=== PATIENT | male | born 1935 | race African-American/Black ===

== ENCOUNTER 2019-04-10 13:44 | Emergency (ER) | payer MEDICARE, OTHER ==
[~2019-04-10] VITALS: Ht 177.8 cm; Wt 68.0 kg
[~2019-04-10 13:44] MED LIST: NAPR-681 PO
[2019-04-10] MEDS ORDERED: CEFAZOLIN 1000MG PREMIX 50 ML IV ONE (15:15)
[2019-04-10 15:45] LABS: EOSINOPHILS % 1.5 % (0.0-5.0); HEMATOCRIT. 38.7 % (42.0-52.0); HEMOGLOBIN. 13.2 g/dL (14.0-18.0); MEAN CORPUSCULAR HEMOGLOBIN 33.4 pg (28.0-32.0); MEAN CORPUSCULAR VOLUME 98.1 fL (80.0-94.0); MEAN PLATELET VOLUME 7.3 fl (7.4-10.4); MONOCYTES % 9.9 % (2.0-8.0); NEUTROPHILS % 59.6 % (40.0-76.0); PLATELET 204 x1000/uL (130-400); RED BLOOD CELL COUNT 3.95 mill/uL (4.7-6.1); RED CELL DISTRIBUTION WIDTH 14.5 % (11.6-14.6)
[2019-04-10 15:46] LABS: CHLORIDE 106 mEq/L (98-107)
[2019-04-10 15:53] LABS: C REACTIVE PROTEIN QUANT 3.1 mg/L (0.0-3.0)
[2019-04-10 16:05] VITALS: BP 152/84
== END 2019-04-10 16:22 | disposition left against medical advice (07) ==
LOC: ER 13:44
DX: L03.114 Cellulitis of left upper limb (principal)
CPT/HCPCS: 36415; 80053; 85025; 85651; 86140; 96365; 99283; J0690

== ENCOUNTER 2021-02-12 21:52 | Inpatient (IN) | payer MEDICARE ==
[~2021-02-12] VITALS: Ht 165.1 cm; Wt 70.3 kg
[2021-02-12] MEDS ORDERED: ACETAMINOPHEN 325MG TABLET PO STA (22:34)
[2021-02-12 23:30] LABS: BASOPHILS % 0.7 % (0.0-2.0); EOSINOPHILS % 0.4 % (0.0-5.0); HEMATOCRIT. 37.3 % (42.0-52.0); HEMOGLOBIN. 12.2 g/dL (14.0-18.0); LYMPHOCYTES % 21.2 % (20.0-50.0); MEAN CORPUSCULAR HEMOGLOBIN 27.1 pg (28.0-32.0); MEAN CORPUSCULAR VOLUME 82.8 fL (80.0-94.0); MEAN PLATELET VOLUME 7.2 fl (7.4-10.4); NEUTROPHILS % 68.7 % (40.0-76.0); PLATELET 252 x1000/uL (130-400); RED CELL DISTRIBUTION WIDTH 19.2 % (11.6-14.6)
[2021-02-12 23:35] LABS: CHLORIDE 106 mEq/L (98-107)
[2021-02-13] MEDS ORDERED: SODIUM CHLORIDE 0.9% 1,000 ML IV ONE
[2021-02-13] MEDS ORDERED: ASPIRIN 325MG EC TABLET PO ONE (01:45)
[2021-02-13] MEDS ORDERED: ACETAMINOPHEN 325MG TABLET PO PRN (02:15)
[2021-02-13] MEDS ORDERED: ONDANSETRON HCL 4MG/2ML INJ IV PRN (02:15)
[2021-02-13 02:23] LABS: CREATINE KINASE 15480 IU/L (39-308)
[2021-02-13 04:05] LABS: CLARITY URINE CLEAR (CLEAR); COLOR URINE DARK YELLOW (YELLOW); KETONES URINE 2+ (NEGATIVE); LEUKOCYTE ESTERASE URINE NEGATIVE (NEGATIVE); NITRITE URINE NEGATIVE (NEGATIVE); OCCULT BLOOD URINE 3+ (NEGATIVE); PH URINE 5.5 (4.5-8.0); PROTEIN URINE 2+ (NEGATIVE); UROBILINOGEN URINE 0.2 E.U./dL (0.2-1.0)
[2021-02-13 08:00] VITALS: BP 128/74
[2021-02-13 09:34] LABS: BASOPHILS % 1.3 % (0.0-2.0); EOSINOPHILS % 2.2 % (0.0-5.0); HEMATOCRIT. 35.1 % (42.0-52.0); HEMOGLOBIN. 11.5 g/dL (14.0-18.0); LYMPHOCYTES % 35.1 % (20.0-50.0); MEAN CORPUSCULAR HEMOGLOBIN 27.2 pg (28.0-32.0); MEAN CORPUSCULAR VOLUME 83.5 fL (80.0-94.0); MEAN PLATELET VOLUME 7.6 fl (7.4-10.4); MONOCYTES % 12.7 % (2.0-8.0); NEUTROPHILS % 48.7 % (40.0-76.0); PLATELET 227 x1000/uL (130-400); RED BLOOD CELL COUNT 4.21 mill/uL (4.7-6.1); RED CELL DISTRIBUTION WIDTH 19.6 % (11.6-14.6)
[2021-02-13 09:41] LABS: CHLORIDE 109 mEq/L (98-107)
[2021-02-13 10:15] VITALS: BP 158/81
[2021-02-13 12:00] VITALS: BP 143/96
[2021-02-13 16:00] VITALS: BP_SYST 157; BP_SYST 165; BP_SYST 173; BP_DIAS 90; BP_DIAS 91; BP_DIAS 96
[2021-02-13 16:06] LABS: BG BASE EXCESS -0.7 mmol/L (-2.0-2.0); BG CARBOXYHEMOGLOBIN 0.4 % (0.5-1.5); BG DEOXYHEMOGLOBIN 4.2 % (0.0-5.0); BG FRACTION INSPIRED OXYGEN 21; BG METHEMOGLOBIN 0.5 % (0.0-1.5); BG OXYGEN SATURATION 95.8 % (92.0-98.5); BG OXYHEMOGLOBIN 94.9 % (94.0-97.0); BG PH 7.436 (7.350-7.450); BG PO2 81.7 mmHg (75.0-100.0); BG SAMPLE SITE RIGHT RADIAL; BG TOTAL HEMOGLOBIN 12.7 g/dL (12.0-18.0); BG VENT MODE ROOM AIR
[2021-02-13] MEDS: SODIUM CHLORIDE 0.9% 1,000 ML IV SCH ×4 (16:42→22:00)
[2021-02-13 16:54] LABS: BASOPHILS % 0.8 % (0.0-2.0); EOSINOPHILS % 0.8 % (0.0-5.0); HEMATOCRIT. 35.9 % (42.0-52.0); HEMOGLOBIN. 11.8 g/dL (14.0-18.0); LYMPHOCYTES % 29.6 % (20.0-50.0); MEAN CORPUSCULAR HEMOGLOBIN 27.4 pg (28.0-32.0); MEAN CORPUSCULAR VOLUME 83.2 fL (80.0-94.0); MEAN PLATELET VOLUME 7.5 fl (7.4-10.4); MONOCYTES % 8.1 % (2.0-8.0); NEUTROPHILS % 60.7 % (40.0-76.0); PLATELET 249 x1000/uL (130-400); RED BLOOD CELL COUNT 4.32 mill/uL (4.7-6.1); RED CELL DISTRIBUTION WIDTH 19.1 % (11.6-14.6)
[2021-02-13] MEDS ORDERED: HYDRALAZINE 20MG/ML VIAL IV PRN (19:00)
[2021-02-13 20:00] VITALS: BP 153/86
[2021-02-13 21:06] LABS: CHLORIDE 111 mEq/L (98-107)
[2021-02-13 21:13] LABS: PHOSPHORUS 1.9 mg/dL (2.5-4.9)
[2021-02-13 21:47] LABS: CREATINE KINASE 8945 IU/L (39-308)
[2021-02-13 23:24] LABS: CLARITY URINE CLEAR (CLEAR); COLOR URINE YELLOW (YELLOW); KETONES URINE TRACE (NEGATIVE); LEUKOCYTE ESTERASE URINE NEGATIVE (NEGATIVE); NITRITE URINE NEGATIVE (NEGATIVE); OCCULT BLOOD URINE NEGATIVE (NEGATIVE); PROTEIN URINE TRACE (NEGATIVE); SPECIFIC GRAVITY URINE 1.027 (1.005-1.030)
[2021-02-14] VITALS: BP 145/91
[2021-02-14 04:00] VITALS: BP 156/86
[2021-02-14] MEDS: SODIUM CHLORIDE 0.9% 1,000 ML IV SCH ×3 (04:22→09:51)
[2021-02-14 08:00] VITALS: BP 157/82
[2021-02-14] MEDS: AMLODIPINE 5MG TABLET PO SCH (09:44)
[2021-02-14 09:59] LABS: EOSINOPHILS % 1.1 % (0.0-5.0); HEMATOCRIT. 34.5 % (42.0-52.0); HEMOGLOBIN. 11.2 g/dL (14.0-18.0); MEAN CORPUSCULAR HEMOGLOBIN 27.6 pg (28.0-32.0); MEAN CORPUSCULAR VOLUME 85.2 fL (80.0-94.0); MEAN PLATELET VOLUME 7.8 fl (7.4-10.4); MONOCYTES % 11.8 % (2.0-8.0); NEUTROPHILS % 58.1 % (40.0-76.0); PLATELET 229 x1000/uL (130-400); RED BLOOD CELL COUNT 4.05 mill/uL (4.7-6.1); RED CELL DISTRIBUTION WIDTH 19.3 % (11.6-14.6)
[2021-02-14 10:17] LABS: CHLORIDE 114 mEq/L (98-107)
[2021-02-14 10:23] LABS: PHOSPHORUS 2.2 mg/dL (2.5-4.9)
[2021-02-14 10:40] LABS: CREATINE KINASE 6096 IU/L (39-308)
[2021-02-14] MEDS ORDERED: POTASSIUM-SODIUM PHOSPHATE POWDER PACKET PO NR (11:15)
[2021-02-14 12:00] VITALS: BP 166/88
[2021-02-14] MEDS: LOSARTAN POTASSIUM 25 MG TABLET PO SCH (12:49)
[2021-02-14] MEDS: SODIUM CHLORIDE 0.45% 1,000 ML IV SCH ×2 (12:51→17:29)
[2021-02-14 14:25] LABS: HEPATITIS B SURFACE AB < 3.1 mIU/mL
[2021-02-14 14:35] LABS: HEPATITIS B SURFACE ANTIGEN NEGATIVE
[2021-02-14 16:00] VITALS: BP 154/100
[2021-02-14 20:00] VITALS: BP 150/78
[2021-02-14 21:01] LABS: BASOPHILS % 0.6 % (0.0-2.0); HEMATOCRIT. 35.6 % (42.0-52.0); HEMOGLOBIN. 11.6 g/dL (14.0-18.0); LYMPHOCYTES % 25.7 % (20.0-50.0); MEAN CORPUSCULAR HEMOGLOBIN 27.3 pg (28.0-32.0); MEAN CORPUSCULAR VOLUME 83.5 fL (80.0-94.0); MONOCYTES % 9.5 % (2.0-8.0); NEUTROPHILS % 63.2 % (40.0-76.0); PLATELET 251 x1000/uL (130-400); RED BLOOD CELL COUNT 4.26 mill/uL (4.7-6.1); RED CELL DISTRIBUTION WIDTH 19.1 % (11.6-14.6)
[2021-02-14 21:08] LABS: CHLORIDE 110 mEq/L (98-107)
[2021-02-14 21:16] LABS: TOTAL IRON BINDING CAPACITY 322 ug/dL (250-450)
[2021-02-14 21:41] LABS: CREATINE KINASE 5350 IU/L (39-308)
[2021-02-14 21:54] LABS: FOLIC ACID (FOLATE) SERUM 17.1 ng/mL (>5.38)
[2021-02-15 00:01] VITALS: BP 152/75
[2021-02-15 04:00] VITALS: BP 160/95
[2021-02-15 07:48] LABS: BASOPHILS % 0.8 % (0.0-2.0); EOSINOPHILS % 0.4 % (0.0-5.0); HEMATOCRIT. 33.9 % (42.0-52.0); HEMOGLOBIN. 11.2 g/dL (14.0-18.0); LYMPHOCYTES % 21.7 % (20.0-50.0); MEAN CORPUSCULAR HEMOGLOBIN 27.6 pg (28.0-32.0); MEAN CORPUSCULAR VOLUME 83.6 fL (80.0-94.0); MEAN PLATELET VOLUME 7.9 fl (7.4-10.4); MONOCYTES % 10.5 % (2.0-8.0); NEUTROPHILS % 66.6 % (40.0-76.0); PLATELET 241 x1000/uL (130-400); RED BLOOD CELL COUNT 4.05 mill/uL (4.7-6.1)
[2021-02-15 07:49] LABS: CHLORIDE 109 mEq/L (98-107)
[2021-02-15 07:56] LABS: PHOSPHORUS 2.4 mg/dL (2.5-4.9)
[2021-02-15 08:00] VITALS: BP 99/39
[2021-02-15] MEDS ORDERED: HYDROCODONE/ACETAMINOPHEN 5/325MG TABLET PO SCH (10:00)
[2021-02-15] MEDS: LOSARTAN POTASSIUM 25 MG TABLET PO SCH (10:28)
[2021-02-15] MEDS: AMLODIPINE 5MG TABLET PO SCH (10:28)
[2021-02-15] MEDS: ACETAMINOPHEN 325MG TABLET PO PRN (10:28)
[2021-02-15] MEDS: SODIUM CHLORIDE 0.45% 1,000 ML IV SCH ×2 (10:30→13:59)
[2021-02-15 12:00] VITALS: BP 141/76
[2021-02-15 12:50] LABS: CREATINE KINASE 3993 IU/L (39-308)
[2021-02-15] MEDS ORDERED: POTASSIUM-SODIUM PHOSPHATE POWDER PACKET PO NR (13:11)
[2021-02-15] MEDS ORDERED: POTASSIUM CHLORIDE 20MEQ TABLET SR PO NR (13:11)
[2021-02-15] MEDS: FERROUS SULFATE 325MG TABLET PO SCH (13:58)
[2021-02-15 16:00] VITALS: BP 132/69
[2021-02-15] MEDS: CYANOCOBALAMIN 1000MCG/ML VIAL IM SCH (18:20)
[2021-02-15 20:00] VITALS: BP 105/82
[2021-02-15] MEDS ORDERED: HYDROCODONE/ACETAMINOPHEN 5/325MG TABLET PO NR (20:00)
[2021-02-16] VITALS: BP 160/82
[2021-02-16 04:00] VITALS: BP 155/83
[2021-02-16 07:48] VITALS: BP 177/137
[2021-02-16] MEDS: SODIUM CHLORIDE 0.45% 1,000 ML IV SCH ×2 (08:18→08:44)
[2021-02-16] MEDS: CYANOCOBALAMIN 1000MCG/ML VIAL IM SCH (08:18)
[2021-02-16] MEDS: AMLODIPINE 5MG TABLET PO SCH (08:18)
[2021-02-16] MEDS: LOSARTAN POTASSIUM 25 MG TABLET PO SCH (08:18)
[2021-02-16 09:45] LABS: BASOPHILS % 0.7 % (0.0-2.0); EOSINOPHILS % 1.4 % (0.0-5.0); HEMATOCRIT. 33.8 % (42.0-52.0); HEMOGLOBIN. 11.2 g/dL (14.0-18.0); LYMPHOCYTES % 28.8 % (20.0-50.0); MEAN CORPUSCULAR HEMOGLOBIN 27.5 pg (28.0-32.0); MEAN CORPUSCULAR VOLUME 83.2 fL (80.0-94.0); MEAN PLATELET VOLUME 7.9 fl (7.4-10.4); MONOCYTES % 12.5 % (2.0-8.0); NEUTROPHILS % 56.6 % (40.0-76.0); PLATELET 244 x1000/uL (130-400); RED BLOOD CELL COUNT 4.07 mill/uL (4.7-6.1); RED CELL DISTRIBUTION WIDTH 19.3 % (11.6-14.6)
[2021-02-16 09:48] LABS: CHLORIDE 109 mEq/L (98-107)
[2021-02-16 09:57] LABS: PHOSPHORUS 2.6 mg/dL (2.5-4.9)
[2021-02-16 10:12] LABS: CREATINE KINASE 2662 IU/L (39-308)
[2021-02-16] MEDS: POTASSIUM CHLORIDE 20MEQ TABLET SR PO SCH ×2 (11:46→14:00)
[2021-02-16 13:51] VITALS: BP 155/83
[2021-02-16 16:00] VITALS: BP 126/74
[2021-02-16 20:00] VITALS: BP 115/65
[2021-02-16] MEDS ORDERED: POTASSIUM CHLORIDE 20MEQ/PACKET PO NR (20:00)
[2021-02-17] VITALS (7 sets, daily range): BP systolic 135–177; BP diastolic 76–85
[2021-02-17] MEDS: FERROUS SULFATE 325MG TABLET PO SCH (09:27)
[2021-02-17] MEDS: LOSARTAN POTASSIUM 25 MG TABLET PO SCH (09:28)
[2021-02-17] MEDS: CYANOCOBALAMIN 1000MCG/ML VIAL IM SCH (09:28)
[2021-02-17] MEDS: AMLODIPINE 5MG TABLET PO SCH (09:28)
[2021-02-17] MEDS ORDERED: POTASSIUM CHLORIDE 20MEQ TABLET SR PO SCH (12:15)
[2021-02-17 16:42] LABS: CHLORIDE 109 mEq/L (98-107)
[2021-02-17 16:46] LABS: PHOSPHORUS 2.9 mg/dL (2.5-4.9)
[2021-02-17 16:50] LABS: MEAN CORPUSCULAR HEMOGLOBIN 27.7 pg (28.0-32.0); MEAN CORPUSCULAR VOLUME 83.5 fL (80.0-94.0); MEAN PLATELET VOLUME 7.6 fl (7.4-10.4); PLATELET 247 x1000/uL (130-400); RED BLOOD CELL COUNT 3.95 mill/uL (4.7-6.1); RED CELL DISTRIBUTION WIDTH 19.3 % (11.6-14.6)
[2021-02-17 17:00] LABS: CREATINE KINASE 1466 IU/L (39-308)
[2021-02-17 17:33] LABS: PLATELET ESTIMATE NORMAL
[2021-02-17] MEDS: SODIUM CHLORIDE 0.45% 1,000 ML IV SCH (19:00)
[2021-02-18] VITALS: BP 132/76
[2021-02-18] MEDS: SODIUM CHLORIDE 0.45% 1,000 ML IV SCH ×3 (01:26→21:26)
[2021-02-18 04:00] VITALS: BP 125/76
[2021-02-18 08:00] VITALS: BP 138/81
[2021-02-18] MEDS: LOSARTAN POTASSIUM 25 MG TABLET PO SCH (09:54)
[2021-02-18] MEDS: AMLODIPINE 5MG TABLET PO SCH (09:54)
[2021-02-18 12:00] VITALS: BP 119/65
[2021-02-18 16:00] VITALS: BP 136/82
[2021-02-18 20:00] VITALS: BP 150/82
[2021-02-19] VITALS: BP 145/79
[2021-02-19 04:00] VITALS: BP 139/75
[2021-02-19] MEDS: SODIUM CHLORIDE 0.45% 1,000 ML IV SCH ×2 (06:31→16:37)
[2021-02-19 08:00] VITALS: BP 152/90
[2021-02-19] MEDS: LOSARTAN POTASSIUM 25 MG TABLET PO SCH (08:41)
[2021-02-19] MEDS: AMLODIPINE 5MG TABLET PO SCH (08:41)
[2021-02-19 08:53] LABS: CHLORIDE 106 mEq/L (98-107)
[2021-02-19 09:03] LABS: PHOSPHORUS 3.6 mg/dL (2.5-4.9)
[2021-02-19 09:04] LABS: CREATINE KINASE 663 IU/L (39-308)
[2021-02-19 09:09] LABS: HEMOGLOBIN. 11.4 g/dL (14.0-18.0); MEAN CORPUSCULAR HEMOGLOBIN 27.6 pg (28.0-32.0); MEAN CORPUSCULAR VOLUME 84.7 fL (80.0-94.0); MEAN PLATELET VOLUME 7.9 fl (7.4-10.4); PLATELET 297 x1000/uL (130-400); RED BLOOD CELL COUNT 4.13 mill/uL (4.7-6.1); RED CELL DISTRIBUTION WIDTH 19.1 % (11.6-14.6)
[2021-02-19 12:00] VITALS: BP 130/77
[2021-02-19 16:00] VITALS: BP 159/87
[2021-02-19 20:00] VITALS: BP_SYST 125; BP_SYST 150; BP_DIAS 85; BP_DIAS 89
[2021-02-19 22:00] LABS: PLATELET ESTIMATE NORMAL
[2021-02-19] MEDS ORDERED: HYDRALAZINE 10 MG in DEXTROSE 5% WATER 50 ML IV PRN (23:00)
[2021-02-20] VITALS: BP 156/91
[2021-02-20] MEDS: SODIUM CHLORIDE 0.45% 1,000 ML IV SCH ×3 (03:26→23:26)
[2021-02-20 04:00] VITALS: BP 135/79
[2021-02-20 07:40] LABS: BASOPHILS % 0.8 % (0.0-2.0); EOSINOPHILS % 0.1 % (0.0-5.0); HEMATOCRIT. 35.3 % (42.0-52.0); HEMOGLOBIN. 11.9 g/dL (14.0-18.0); LYMPHOCYTES % 20.7 % (20.0-50.0); MEAN CORPUSCULAR HEMOGLOBIN 27.9 pg (28.0-32.0); MEAN CORPUSCULAR VOLUME 82.8 fL (80.0-94.0); MEAN PLATELET VOLUME 7.7 fl (7.4-10.4); MONOCYTES % 14.4 % (2.0-8.0); PLATELET 326 x1000/uL (130-400); RED BLOOD CELL COUNT 4.26 mill/uL (4.7-6.1); RED CELL DISTRIBUTION WIDTH 18.9 % (11.6-14.6)
[2021-02-20 07:46] LABS: CHLORIDE 102 mEq/L (98-107)
[2021-02-20 07:54] LABS: PHOSPHORUS 3.2 mg/dL (2.5-4.9)
[2021-02-20 07:56] LABS: CREATINE KINASE 517 IU/L (39-308)
[2021-02-20 08:00] VITALS: BP 149/76
[2021-02-20] MEDS: FERROUS SULFATE 325MG TABLET PO SCH (10:54)
[2021-02-20] MEDS: LOSARTAN POTASSIUM 25 MG TABLET PO SCH (10:54)
[2021-02-20] MEDS: AMLODIPINE 5MG TABLET PO SCH (10:54)
[2021-02-20 12:00] VITALS: BP 166/85
[2021-02-20 16:00] VITALS: BP 152/77
[2021-02-20 20:00] VITALS: BP 155/81
[2021-02-21] VITALS: BP 133/76
[2021-02-21 04:00] VITALS: BP 137/76
[2021-02-21 07:20] LABS: HEMATOCRIT. 33.2 % (42.0-52.0); HEMOGLOBIN. 11.2 g/dL (14.0-18.0); MEAN CORPUSCULAR HEMOGLOBIN 28.2 pg (28.0-32.0); MEAN CORPUSCULAR VOLUME 83.9 fL (80.0-94.0); MEAN PLATELET VOLUME 7.9 fl (7.4-10.4); PLATELET 325 x1000/uL (130-400); RED BLOOD CELL COUNT 3.95 mill/uL (4.7-6.1); RED CELL DISTRIBUTION WIDTH 18.9 % (11.6-14.6)
[2021-02-21 08:00] VITALS: BP 188/63
[2021-02-21 08:10] LABS: CHLORIDE 106 mEq/L (98-107)
[2021-02-21 08:16] LABS: PHOSPHORUS 2.7 mg/dL (2.5-4.9)
[2021-02-21 08:19] LABS: CREATINE KINASE 362 IU/L (39-308)
[2021-02-21] MEDS: LOSARTAN POTASSIUM 25 MG TABLET PO SCH (09:13)
[2021-02-21] MEDS: AMLODIPINE 5MG TABLET PO SCH (09:14)
[2021-02-21] MEDS: SODIUM CHLORIDE 0.45% 1,000 ML IV SCH ×2 (09:26→19:26)
[2021-02-21] MEDS ORDERED: AMLODIPINE 5MG TABLET PO NR (11:30)
[2021-02-21 12:00] VITALS: BP 146/54
[2021-02-21] MEDS ORDERED: HYDRALAZINE HCL 25MG TABLET PO PRN (13:00)
[2021-02-21] MEDS: ACETAMINOPHEN 325MG TABLET PO PRN (15:07)
[2021-02-21 16:00] VITALS: BP 134/84
[2021-02-21 18:16] LABS: PLATELET ESTIMATE NORMAL
[2021-02-21 20:00] VITALS: BP 150/84
[2021-02-21] MEDS ORDERED: LOSARTAN POTASSIUM 50 MG TABLET PO SCH (21:00)
[2021-02-22] VITALS: BP 156/99
[2021-02-22 04:00] VITALS: BP 128/76
[2021-02-22] MEDS: SODIUM CHLORIDE 0.45% 1,000 ML IV SCH (05:26)
[2021-02-22 07:12] LABS: CHLORIDE 104 mEq/L (98-107)
[2021-02-22 07:23] LABS: PHOSPHORUS 2.9 mg/dL (2.5-4.9)
[2021-02-22 07:24] LABS: BASOPHILS % 0.4 % (0.0-2.0); EOSINOPHILS % 0.1 % (0.0-5.0); HEMATOCRIT. 35.9 % (42.0-52.0); LYMPHOCYTES % 19.6 % (20.0-50.0); MEAN CORPUSCULAR HEMOGLOBIN 28.2 pg (28.0-32.0); MEAN CORPUSCULAR VOLUME 84.3 fL (80.0-94.0); MEAN PLATELET VOLUME 7.7 fl (7.4-10.4); MONOCYTES % 14.1 % (2.0-8.0); NEUTROPHILS % 65.8 % (40.0-76.0); PLATELET 355 x1000/uL (130-400); RED BLOOD CELL COUNT 4.26 mill/uL (4.7-6.1); RED CELL DISTRIBUTION WIDTH 19.7 % (11.6-14.6)
[2021-02-22 07:27] LABS: CREATINE KINASE 492 IU/L (39-308)
[2021-02-22 08:00] VITALS: BP 142/86
[2021-02-22] MEDS ORDERED: AMLODIPINE 10MG TABLET PO SCH (09:00)
[2021-02-22] MEDS: FERROUS SULFATE 325MG TABLET PO SCH (09:59)
[2021-02-22] MEDS ORDERED: LOSA50TA3 PO (15:02)
[2021-02-22] MEDS ORDERED: FERR325T23 PO (15:02)
[2021-02-22] MEDS ORDERED: AMLO10TA80 PO (15:02)
[2021-02-22 16:50] VITALS: BP 114/67
== END 2021-02-22 17:40 | disposition home or self-care (01) | DRG 280 ==
LOC: ER 21:52 → SUPCPDRO 02-13 01:40 → MICUSO 02-13 06:16 → 8WST 02-13 08:49 → 6EST 02-19 21:44
PROVIDERS: ADMIT Internal Medicine; ATTEND Internal Medicine
PROC: 4A10X4Z Monitoring of Central Nervous Electrical Activity, External Approach (ICD-10-PCS; principal; 2021-02-16)
DX: I21.4 Non-ST elevation (NSTEMI) myocardial infarction (principal); E43 Unspecified severe protein-calorie malnutrition; G93.40 Encephalopathy, unspecified; M62.82 Rhabdomyolysis; M48.54XA Collapsed vertebra, not elsewhere classified, thoracic region, initial encounter for fracture; R29.6 Repeated falls; I10 Essential (primary) hypertension; G30.9 Alzheimer's disease, unspecified; F02.80 Dementia in other diseases classified elsewhere, unspecified severity, without behavioral disturbance, psychotic disturbance, mood disturbance, and anxiety; E78.5 Hyperlipidemia, unspecified; G89.29 Other chronic pain; E83.39 Other disorders of phosphorus metabolism; R74.01 Elevation of levels of liver transaminase levels; E80.6 Other disorders of bilirubin metabolism; E53.8 Deficiency of other specified B group vitamins; M48.02 Spinal stenosis, cervical region; M47.9 Spondylosis, unspecified; M41.9 Scoliosis, unspecified; D50.9 Iron deficiency anemia, unspecified; Z86.73 Personal history of transient ischemic attack (TIA), and cerebral infarction without residual deficits; Y92.009 Unspecified place in unspecified non-institutional (private) residence as the place of occurrence of the external cause; Z82.49 Family history of ischemic heart disease and other diseases of the circulatory system; Z68.25 Body mass index [BMI] 25.0-25.9, adult
CPT/HCPCS: 36415; 36600; 71045; 72141; 72146; 72148; 73130; 73200; 76700; 80048; 80053; 81003; 82375; 82550; 82607; 82728; 82746; 82805; 83540; 83550; 83735; 84100; 84443; 84484; 85025; 85044; 86705; 86706; 86709; 86803; 87340; 93005; 93306; 93880; 95816; 97116; 97162; 97165; 97530; 99285; C1893; J3420; J7030

== ENCOUNTER 2021-12-24 18:32 | Inpatient (IN) | payer MEDICARE ==
[~2021-12-24] VITALS: Ht 180.3 cm; Wt 66.3 kg
[~2021-12-24 18:32] MED LIST changes: +AMLO10TA80 PO; +CYAN100096 PO; +DICL100G31 TP; +FERR325T23 PO; +LOSA50TA3 PO; +MULT-470 PO; +TOPUD PO
[2021-12-24 20:42] LABS: EOSINOPHILS % 2.2 % (0.0-5.0); HEMATOCRIT. 36.8 % (42.0-52.0); HEMOGLOBIN. 12.1 g/dL (14.0-18.0); LYMPHOCYTES % 46.3 % (20.0-50.0); MEAN CORPUSCULAR HEMOGLOBIN 31.4 pg (28.0-32.0); MEAN CORPUSCULAR VOLUME 95.6 fL (80.0-94.0); MEAN PLATELET VOLUME 7.2 fl (7.4-10.4); MONOCYTES % 13.2 % (2.0-8.0); NEUTROPHILS % 37.3 % (40.0-76.0); PLATELET 197 x1000/uL (130-400); RED BLOOD CELL COUNT 3.85 mill/uL (4.7-6.1); RED CELL DISTRIBUTION WIDTH 15.4 % (11.6-14.6)
[2021-12-24 20:47] LABS: CHLORIDE 106 mEq/L (98-107)
[2021-12-24 22:40] LABS: CLARITY URINE CLEAR (CLEAR); COLOR URINE YELLOW (YELLOW); KETONES URINE NEGATIVE (NEGATIVE); LEUKOCYTE ESTERASE URINE NEGATIVE (NEGATIVE); NITRITE URINE NEGATIVE (NEGATIVE); OCCULT BLOOD URINE NEGATIVE (NEGATIVE); PROTEIN URINE NEGATIVE (NEGATIVE); SPECIFIC GRAVITY URINE 1.023 (1.005-1.030); UROBILINOGEN URINE 0.2 E.U./dL (0.2-1.0)
[2021-12-24] MEDS ORDERED: DIPHENHYDRAMINE 25MG CAPSULE PO ONE (22:45)
[2021-12-25 12:00] VITALS: BP 142/103
[2021-12-25 14:00] VITALS: BP 142/103
[2021-12-25] MEDS ORDERED: ACETAMINOPHEN 325MG TABLET PO PRN ×2 (15:15)
[2021-12-25] MEDS ORDERED: LORAZEPAM 0.5MG TABLET PO PRN (15:15)
[2021-12-25] MEDS ORDERED: HYDROCODONE/ACETAMINOPHEN 5/325MG TABLET PO PRN (15:15)
[2021-12-25] MEDS ORDERED: ONDANSETRON HCL 4MG/2ML INJ IV PRN (15:15)
[2021-12-25] MEDS ORDERED: IPRATROPIUM/ALBUTEROL 0.5-3(2.5)MG/3ML NEB HHN PRN (15:15)
[2021-12-25] MEDS ORDERED: CLONIDINE 0.1MG TABLET PO PRN (15:15)
[2021-12-25] MEDS ORDERED: NALOXONE HCL 0.4MG/ML VIAL IV PRN (15:30)
[2021-12-25 16:00] VITALS: BP 122/68
[2021-12-25 20:00] VITALS: BP 126/78
[2021-12-26] VITALS (7 sets, daily range): BP systolic 113–131; BP diastolic 71–77
[2021-12-26 11:28] LABS: BASOPHILS % 1.1 % (0.0-2.0); EOSINOPHILS % 1.7 % (0.0-5.0); HEMATOCRIT. 36.7 % (42.0-52.0); HEMOGLOBIN. 12.4 g/dL (14.0-18.0); LYMPHOCYTES % 31.5 % (20.0-50.0); MEAN CORPUSCULAR HEMOGLOBIN 32.1 pg (28.0-32.0); MEAN CORPUSCULAR VOLUME 95.5 fL (80.0-94.0); MEAN PLATELET VOLUME 7.2 fl (7.4-10.4); MONOCYTES % 12.6 % (2.0-8.0); NEUTROPHILS % 53.1 % (40.0-76.0); PLATELET 199 x1000/uL (130-400); RED BLOOD CELL COUNT 3.85 mill/uL (4.7-6.1); RED CELL DISTRIBUTION WIDTH 15.1 % (11.6-14.6)
[2021-12-26 11:40] LABS: CHLORIDE 110 mEq/L (98-107)
[2021-12-26 11:55] LABS: PHOSPHORUS 2.6 mg/dL (2.5-4.9); TOTAL IRON BINDING CAPACITY 288 ug/dL (250-450)
[2021-12-26 12:10] LABS: FOLIC ACID (FOLATE) SERUM 18.7 ng/mL (>5.38)
== END 2021-12-26 18:00 | disposition home health service (06) | DRG 57 ==
LOC: ER 18:32 → 6WST 22:02 → ENRESERV 12-25 12:15 → 6EST 12-26 10:40
PROVIDERS: ADMIT Internal Medicine; ATTEND Internal Medicine
DX: G30.9 Alzheimer's disease, unspecified (principal); I10 Essential (primary) hypertension; F02.80 Dementia in other diseases classified elsewhere, unspecified severity, without behavioral disturbance, psychotic disturbance, mood disturbance, and anxiety; M19.90 Unspecified osteoarthritis, unspecified site; Z86.73 Personal history of transient ischemic attack (TIA), and cerebral infarction without residual deficits
CPT/HCPCS: 36415; 80048; 80053; 81003; 82607; 82728; 82746; 83036; 83540; 83550; 83735; 84100; 84425; 84443; 85025; 99285; Q0163

== ENCOUNTER 2022-07-04 14:40 | Emergency (ER) | payer MEDICARE ==
[~2022-07-04] VITALS: Ht 177.8 cm; Wt 62.0 kg
[2022-07-04] MEDS ORDERED: SODIUM CHLORIDE 0.9% 1,000 ML IV ONE (15:15)
[2022-07-04 15:53] LABS: BASOPHILS % 0.5 % (0.0-2.0); EOSINOPHILS % 0.6 % (0.0-5.0); HEMATOCRIT. 42.4 % (42.0-52.0); HEMOGLOBIN. 14.1 g/dL (14.0-18.0); LYMPHOCYTES % 46.9 % (20.0-50.0); MEAN CORPUSCULAR HEMOGLOBIN 31.8 pg (28.0-32.0); MEAN CORPUSCULAR VOLUME 95.5 fL (80.0-94.0); MEAN PLATELET VOLUME 7.3 fl (7.4-10.4); MONOCYTES % 11.8 % (2.0-8.0); NEUTROPHILS % 40.2 % (40.0-76.0); PLATELET 199 x1000/uL (130-400); RED BLOOD CELL COUNT 4.44 mill/uL (4.7-6.1); RED CELL DISTRIBUTION WIDTH 14.9 % (11.6-14.6)
[2022-07-04 16:08] LABS: CHLORIDE 111 mEq/L (98-107)
[2022-07-05 00:30] VITALS: BP 145/79
== END 2022-07-05 00:30 ==
LOC: ER 16:41
DX: R19.7 Diarrhea, unspecified (principal); I10 Essential (primary) hypertension; E78.00 Pure hypercholesterolemia, unspecified; D64.9 Anemia, unspecified; M19.90 Unspecified osteoarthritis, unspecified site; F03.90 Unspecified dementia, unspecified severity, without behavioral disturbance, psychotic disturbance, mood disturbance, and anxiety; Z86.73 Personal history of transient ischemic attack (TIA), and cerebral infarction without residual deficits
CPT/HCPCS: 36415; 74176; 80053; 83605; 83690; 85025; 96360; 99284; J7030

== ENCOUNTER 2022-07-23 19:42 | Inpatient (IN) | payer MEDICARE ==
[~2022-07-23] VITALS: Ht 180.3 cm; Wt 63.5 kg
[2022-07-23] MEDS ORDERED: ACETAMINOPHEN 325MG TABLET PO STA (19:59)
[2022-07-23] MEDS ORDERED: CEFTRIAXONE 1 G PREMIX 50 ML IV ONE (20:00)
[2022-07-23] MEDS ORDERED: AZITHROMYCIN 500MG/250ML 250 ML IV ONE (20:00)
[2022-07-23] MEDS ORDERED: SODIUM CHLORIDE 0.9% 1,000 ML IV ONE (20:00)
[2022-07-23 21:06] LABS: CHLORIDE 101 mEq/L (98-107)
[2022-07-23 21:18] LABS: BASOPHILS % 0.4 % (0.0-2.0); HEMOGLOBIN. 14.4 g/dL (14.0-18.0); LYMPHOCYTES % 15.5 % (20.0-50.0); MEAN CORPUSCULAR HEMOGLOBIN 31.7 pg (28.0-32.0); MEAN CORPUSCULAR VOLUME 94.4 fL (80.0-94.0); MEAN PLATELET VOLUME 7.6 fl (7.4-10.4); MONOCYTES % 8.8 % (2.0-8.0); NEUTROPHILS % 75.3 % (40.0-76.0); PLATELET 187 x1000/uL (130-400); RED BLOOD CELL COUNT 4.55 mill/uL (4.7-6.1); RED CELL DISTRIBUTION WIDTH 14.9 % (11.6-14.6)
[2022-07-23 21:28] LABS: INR 1.2; PROTHROMBIN TIME 12.6 sec (9.6-11.0)
[2022-07-23] MEDS ORDERED: FUROSEMIDE 40MG/4ML VIAL IVP ONE (22:15)
[2022-07-24] MEDS ORDERED: PIPERACILLIN/TAZOBACTAM 3.375GM/50ML PREMIX IV NR (00:15)
[2022-07-24] MEDS ORDERED: VANCOMYCIN 1G PREMIX 200 ML IV SCH (00:15)
[2022-07-24 01:42] LABS: CLARITY URINE CLEAR (CLEAR); COLOR URINE DARK YELLOW (YELLOW); KETONES URINE TRACE (NEGATIVE); LEUKOCYTE ESTERASE URINE NEGATIVE (NEGATIVE); NITRITE URINE NEGATIVE (NEGATIVE); OCCULT BLOOD URINE 2+ (NEGATIVE); PH URINE 5.5 (4.5-8.0); PROTEIN URINE 1+ (NEGATIVE); SPECIFIC GRAVITY URINE 1.021 (1.005-1.030); UROBILINOGEN URINE 0.2 E.U./dL (0.2-1.0)
[2022-07-24] MEDS ORDERED: ACETAMINOPHEN 650MG SUPP PR ONE (01:45)
[2022-07-24] MEDS ORDERED: ACETAMINOPHEN 650MG SUPP PR NR (02:15)
[2022-07-24 12:40] VITALS: BP 131/64
[2022-07-24] MEDS ORDERED: ONDANSETRON HCL 4MG/2ML INJ IV PRN (15:15)
[2022-07-24] MEDS ORDERED: HYDROCODONE/ACETAMINOPHEN 5/325MG TABLET PO PRN (15:15)
[2022-07-24] MEDS ORDERED: LORAZEPAM 0.5MG TABLET PO PRN (15:15)
[2022-07-24] MEDS ORDERED: ACETAMINOPHEN 325MG TABLET PO PRN ×2 (15:15)
[2022-07-24] MEDS ORDERED: CLONIDINE 0.1MG TABLET PO PRN (15:15)
[2022-07-24] MEDS ORDERED: DOCUSATE SODIUM 100MG CAPSULE PO PRN (15:15)
[2022-07-24 16:00] VITALS: BP 125/69
[2022-07-24] MEDS: ENOXAPARIN 40MG/0.4ML SYR SUBCUT SCH (16:53)
[2022-07-24 20:00] VITALS: BP 122/73
[2022-07-25] VITALS: BP 105/68
[2022-07-25 04:00] VITALS: BP 106/64
[2022-07-25 06:58] LABS: BASOPHILS % 0.5 % (0.0-2.0); HEMATOCRIT. 38.3 % (42.0-52.0); LYMPHOCYTES % 30.3 % (20.0-50.0); MEAN CORPUSCULAR HEMOGLOBIN 31.9 pg (28.0-32.0); MEAN CORPUSCULAR VOLUME 93.9 fL (80.0-94.0); MEAN PLATELET VOLUME 7.9 fl (7.4-10.4); MONOCYTES % 10.4 % (2.0-8.0); NEUTROPHILS % 58.8 % (40.0-76.0); PLATELET 145 x1000/uL (130-400); RED BLOOD CELL COUNT 4.08 mill/uL (4.7-6.1); RED CELL DISTRIBUTION WIDTH 14.9 % (11.6-14.6)
[2022-07-25 08:21] LABS: CHLORIDE 111 mEq/L (98-107)
[2022-07-25 12:10] VITALS: BP 118/66
[2022-07-25] MEDS ORDERED: GUAIFENESIN 200MG/10ML SUGAR FREE UDC PO PRN (12:45)
[2022-07-25 16:00] VITALS: BP 110/65
[2022-07-25] MEDS ORDERED: ALBUTEROL 6.7GM HFA INHALER ORI PRN (16:00)
[2022-07-25] MEDS: ENOXAPARIN 40MG/0.4ML SYR SUBCUT SCH (17:18)
[2022-07-25] MEDS ORDERED: LOSARTAN POTASSIUM 50 MG TABLET PO SCH (21:00)
[2022-07-25] MEDS: FAMOTIDINE 20MG TABLET PO SCH (21:00)
[2022-07-26] VITALS: BP 118/71
[2022-07-26 04:00] VITALS: BP 117/73
[2022-07-26 08:00] VITALS: BP 114/65
[2022-07-26] MEDS ORDERED: NALOXONE HCL 0.4MG/ML VIAL IV PRN (08:15)
[2022-07-26] MEDS ORDERED: AMLODIPINE 10MG TABLET PO SCH (09:00)
[2022-07-26] MEDS ORDERED: PANTOPRAZOLE SODIUM 40 MG/VIAL IV SCH (09:00)
[2022-07-26] MEDS ORDERED: ACETAMINOPHEN 325MG TABLET PO PRN (09:15)
[2022-07-26] MEDS ORDERED: HYDROCODONE/ACETAMINOPHEN 5/325MG TABLET PO PRN (11:15)
[2022-07-26 12:00] VITALS: BP 111/75
[2022-07-26] MEDS: GUAIFENESIN 200MG/10ML SUGAR FREE UDC PO SCH ×4 (12:50→20:42)
[2022-07-26 16:00] VITALS: BP 118/72
[2022-07-26] MEDS: SODIUM CHLORIDE 0.9% 1,000 ML IV SCH (17:12)
[2022-07-26] MEDS: ENOXAPARIN 40MG/0.4ML SYR SUBCUT SCH (17:12)
[2022-07-26 20:00] VITALS: BP_SYST 127; BP_SYST 148; BP_DIAS 72; BP_DIAS 98
[2022-07-26] MEDS: FAMOTIDINE 20MG TABLET PO SCH (20:42)
[2022-07-27] VITALS: BP 129/63
[2022-07-27] MEDS: GUAIFENESIN 200MG/10ML SUGAR FREE UDC PO SCH ×5 (00:52→20:55)
[2022-07-27] MEDS: SODIUM CHLORIDE 0.9% 1,000 ML IV SCH ×3 (02:52→23:10)
[2022-07-27 04:06] VITALS: BP 129/63
[2022-07-27 08:00] VITALS: BP 124/73
[2022-07-27] MEDS ORDERED: FERROUS SULFATE 325MG TABLET PO SCH (09:00)
[2022-07-27 16:00] VITALS: BP 119/70
[2022-07-27] MEDS: ENOXAPARIN 40MG/0.4ML SYR SUBCUT SCH (17:07)
[2022-07-27 20:00] VITALS: BP 137/72
[2022-07-27] MEDS: FAMOTIDINE 20MG TABLET PO SCH (20:55)
[2022-07-27 21:25] LABS: HEMATOCRIT 34.4 % (42.0-52.0); HEMOGLOBIN 11.7 g/dL (14.0-18.0); MEAN CORPUSCULAR HEMOGLOBIN 31.7 pg (28.0-32.0); MEAN CORPUSCULAR VOLUME 93.3 fL (80.0-94.0); PLATELET 121 x1000/uL (130-400); RED BLOOD CELL COUNT 3.69 mill/uL (4.7-6.1); RED CELL DISTRIBUTION WIDTH 14.9 % (11.6-14.6)
[2022-07-27 21:40] LABS: CHLORIDE 112 mEq/L (98-107)
[2022-07-27 21:46] LABS: PHOSPHORUS 1.8 mg/dL (2.5-4.9)
[2022-07-28] VITALS: BP 128/68
[2022-07-28] MEDS: GUAIFENESIN 200MG/10ML SUGAR FREE UDC PO SCH ×4 (02:41→13:42)
[2022-07-28 04:00] VITALS: BP 139/72
[2022-07-28 08:00] VITALS: BP 143/78
[2022-07-28] MEDS ORDERED: AMLO5TAB88 PO (08:05)
[2022-07-28] MEDS: POTASSIUM-SODIUM PHOSPHATE POWDER PACKET PO SCH ×2 (10:26→14:45)
[2022-07-28 12:00] VITALS: BP 131/81
[2022-07-28 14:06] VITALS: BP 131/81
== END 2022-07-28 16:24 | DRG 871 ==
LOC: ER 19:42 → 7EST 07-24 01:24
PROVIDERS: ADMIT Internal Medicine; ATTEND Internal Medicine
DX: A41.89 Other specified sepsis (principal); J12.82 Pneumonia due to coronavirus disease 2019; J96.00 Acute respiratory failure, unspecified whether with hypoxia or hypercapnia; U07.1 COVID-19; N17.9 Acute kidney failure, unspecified; G30.9 Alzheimer's disease, unspecified; F02.80 Dementia in other diseases classified elsewhere, unspecified severity, without behavioral disturbance, psychotic disturbance, mood disturbance, and anxiety; I10 Essential (primary) hypertension; D72.821 Monocytosis (symptomatic); D50.9 Iron deficiency anemia, unspecified; R74.01 Elevation of levels of liver transaminase levels; R29.6 Repeated falls; R54 Age-related physical debility; R79.89 Other specified abnormal findings of blood chemistry; Z86.73 Personal history of transient ischemic attack (TIA), and cerebral infarction without residual deficits; Z78.9 Other specified health status; Z91.81 History of falling; Z79.899 Other long term (current) drug therapy
CPT/HCPCS: 36415; 71045; 80048; 80053; 81003; 82728; 83605; 83615; 83735; 83880; 84100; 84145; 84484; 85025; 85027; 85651; 87426; 87804; 93005; 97162; 97166; 99285; C9803; J1650; J2543; J3370; J7030